=== PATIENT | female | born 1975 ===

== ENCOUNTER 2020-08-20 05:58 | Day surgery (SDC) | payer OTHER ==
[~2020-08-20 05:58] MED LIST: DAILY VALUE1 EACH PO
[2020-08-20] MEDS ORDERED: PERCOCET 5-3251 EACH PO (17:36)
[2020-08-20] MEDS ORDERED: NEURONTIN600 M1 PO (17:37)
[2020-08-20] MEDS ORDERED: COLACE100 MG PO (17:37)
== END 2020-08-20 19:15 | disposition home or self-care (01) ==
LOC: CIR.AMB 05:58
PROVIDERS: ATTEND Obstetrics & Gynecology
DX: Z30.2 Encounter for sterilization (principal); K42.0 Umbilical hernia with obstruction, without gangrene; Z20.822 Contact with and (suspected) exposure to COVID-19

== ENCOUNTER 2025-01-03 07:00 | Day surgery (SDC) | payer OTHER ==
[~2025-01-03 07:00] MED LIST changes: +COLACE100 MG PO; +NEURONTIN600 M1 PO; +PERCOCET 5-3251 EACH PO
[2025-01-03] MEDS ORDERED: CEFAZOLIN SODIUM 1,000 MG VIAL IV ONE (09:00)
[2025-01-03] MEDS ORDERED: BUPIVACAINE HCL 30 ML VIAL IJ ONE (09:00)
[2025-01-03] MEDS ORDERED: TRAMADOL HCL50 MG PO (09:38)
[2025-01-03] MEDS ORDERED: KETO10TA2 PO (09:38)
[2025-01-03] MEDS ORDERED: TYLENOL ARTHRI650 MG PO (09:38)
[2025-01-03] MEDS ORDERED: MIRALAX17 GM PO (09:38)
== END 2025-01-03 12:50 | disposition home or self-care (01) ==
LOC: CIR.AMB 07:00
PROVIDERS: ATTEND Surgery
DX: K42.0 Umbilical hernia with obstruction, without gangrene (principal)
CPT/HCPCS: 49616; C1781